=== PATIENT | female | born 1995 | race Caucasian/White ===

== ENCOUNTER 2019-05-12 12:16 | Emergency (ER) | payer SELFPAY ==
[~2019-05-12] VITALS: Ht 165.1 cm; Wt 59.4 kg
[2019-05-12 12:28] VITALS: BP_SYST 123
--- NOTE | 2019-05-12 12:32 | NUR ---
Patient to ER bed 8 to gown for evaluation. Side rails up. Report given to Odette DUDLEY.
--- NOTE | 2019-05-12 12:34 | NUR ---
Pt brought by self,A&Ox4, pt presents to ER with cough and congestion , skin pink and warm, cap refill <3, VSS.
--- NOTE | 2019-05-12 13:14 | NUR ---
Patient moved to bed 2.
[2019-05-12 13:43] VITALS: BP_SYST 123
--- NOTE | 2019-05-12 13:45 | NUR ---
Patient given written and verbal discharge instructions and verbalizes understanding. ER MD discussed with patient the results and treatment provided. Patient in stable condition. ID arm band removed. Rx of Augmentin and Ibuprofen given. Patient educated on pain management and to follow up with PMD. Pain Scale 0/10. Opportunity for questions provided and answered. Medication side effect fact sheet provided.
== END 2019-05-12 13:43 | disposition home or self-care (01) ==
LOC: SED 12:16
DX: J01.90 Acute sinusitis, unspecified (principal); R03.0 Elevated blood-pressure reading, without diagnosis of hypertension
CPT/HCPCS: 36415; 86710; 99283